=== PATIENT | female | born 1985 | race Two or more races ===

== ENCOUNTER 2016-11-01 13:20 | Emergency (ER) | payer SELFPAY ==
[2016-11-01] MEDS ORDERED: CARBAMIDE PEROXIDE 6.5% AU ONE (13:45)
== END 2016-11-01 15:30 | disposition home or self-care (01) ==
LOC: ED 13:20
DX: H61.23 Impacted cerumen, bilateral (principal)
CPT/HCPCS: 99283; 99282; A9270

== ENCOUNTER 2017-02-10 10:39 | Emergency (ER) | payer MEDICAID | END 2017-02-10 11:35 | disposition home or self-care (01) | LOC: ED 10:39 | DX: L02.214 Cutaneous abscess of groin (principal); E66.9 Obesity, unspecified; E11.9 Type 2 diabetes mellitus without complications; Z79.84 Long term (current) use of oral hypoglycemic drugs ==